=== PATIENT | male | born 1955 | race African-American/Black ===

== ENCOUNTER 2018-05-03 09:50 | Day surgery (SDC) | payer MEDICAID ==
[~2018-05-03] VITALS: Ht 170.2 cm; Wt 92.5 kg
[2018-05-03] MEDS ORDERED: FURO40TA5 PO (11:09)
[2018-05-03] MEDS ORDERED: MIDAZOLAM HCL 2 MG/2 ML VIAL ONE (11:34)
[2018-05-03] MEDS ORDERED: FENTANYL CITRATE/PF 50MCG/ML 2ML VIAL ONE (11:35)
[2018-05-03] MEDS ORDERED: LIDOCAINE HCL 1% 20ML VIAL (Pyxis) INJ ONE (11:36)
[2018-05-03] MEDS ORDERED: IODIXANOL 320MG/ML 100 ML BOTTLE IV ONE (11:36)
[2018-05-03] MEDS ORDERED: ACETAMINOPHEN 325MG TABLET PO PRN (12:15)
[2018-05-03] MEDS ORDERED: ONDANSETRON HCL 4MG/2ML INJ IV PRN (12:15)
[2018-05-03] MEDS ORDERED: ATROPINE SULFATE 1MG/10ML SYR IV PRN (12:15)
[2018-05-03] MEDS ORDERED: HYDR100T26 PO (12:41)
[2018-05-03] MEDS ORDERED: DILT240T12 PO (12:46)
[2018-05-03] MEDS ORDERED: POTA20TA12 PO (12:47)
[2018-05-03] MEDS ORDERED: ISOS60TA4 PO (12:49)
[2018-05-03] MEDS ORDERED: CARV25TA47 PO (12:50)
[2018-05-03] MEDS ORDERED: LISI10TA5 PO (12:51)
[2018-05-03] MEDS ORDERED: LORA10TA7 PO (13:00)
[2018-05-03] MEDS ORDERED: ATOR20TA65 PO (13:00)
[2018-05-03] MEDS ORDERED: HYDR-4001 PO (13:01)
[2018-05-03] MEDS ORDERED: CLON0.2T PO (13:03)
[2018-05-03] MEDS ORDERED: NITR0.4T SL (13:03)
[2018-05-03] MEDS ORDERED: RIVA20TA PO (13:05)
[2018-05-03] MEDS ORDERED: FAMO40TA70 PO (13:05)
[2018-05-03] MEDS ORDERED: ALLO100T PO (13:05)
[2018-05-03] MEDS ORDERED: HEPARIN SODIUM 1,000 UNIT/1ML VIAL IV ONE (14:03)
[2018-05-03] MEDS ORDERED: NICARDIPINE 100MCG/ML 10ML VIAL (CATH LAB) IV ONE (15:13)
[2018-05-03] MEDS ORDERED: NITROGLYCERIN 50MCG/ML 10ML VIAL (CATH LAB) IV ONE (15:13)
== END 2018-05-03 15:10 | disposition home or self-care (01) ==
LOC: CCL 09:50
PROVIDERS: ATTEND Specialist
DX: I25.10 Atherosclerotic heart disease of native coronary artery without angina pectoris (principal); I51.7 Cardiomegaly; R00.2 Palpitations; Z79.899 Other long term (current) drug therapy; Z88.0 Allergy status to penicillin
CPT/HCPCS: 93458; 99152; C1769; J1644; J2250; J3010; J3490; Q9967; C1887; C1893; G0500